=== PATIENT | female | born 1950 | race Caucasian/White ===

== ENCOUNTER → 2021-05-18 | Outpatient (CLI) | payer OTHER | LOC: M.RAD 10:29 | PROVIDERS: ATTEND Family Medicine | DX: Z12.31 Encounter for screening mammogram for malignant neoplasm of breast (principal); N64.89 Other specified disorders of breast ==

== ENCOUNTER → 2021-06-19 | Outpatient (CLI) | payer OTHER | LOC: M.LAB 15:40 | DX: H05.243 Constant exophthalmos, bilateral (principal) ==

== ENCOUNTER → 2021-06-21 | Outpatient (CLI) | payer OTHER ==
[2021-06-21 11:23] LABS: CREATININE 1.3 mg/dL (0.6-1.3)
== END ==
LOC: M.MRI 10:08
DX: I67.82 Cerebral ischemia (principal); H05.243 Constant exophthalmos, bilateral; G31.1 Senile degeneration of brain, not elsewhere classified

== ENCOUNTER 2021-08-23 09:42 | Emergency (ER) | payer OTHER ==
[~2021-08-23] VITALS: Ht 162.6 cm; Wt 68.0 kg
[2021-08-23] MEDS ORDERED: FUROSEMIDE 20 M20 MG PO (10:02)
[2021-08-23] MEDS ORDERED: KLOR-CON 10 ER10 MEQ PO (10:03)
[2021-08-23] MEDS ORDERED: LIPITOR 20 MG T20 M1 PO (10:03)
[2021-08-23] MEDS ORDERED: ARTHRITIS PAIN100 GM TOP (10:03)
[2021-08-23] MEDS ORDERED: VALSARTAN-HCTZ1 EACH PO (10:03)
[2021-08-23] MEDS ORDERED: PLAVIX 75 MG TA75 MG PO (10:03)
[2021-08-23] MEDS ORDERED: ZANAFLEX4 M2 PO (10:03)
[2021-08-23] MEDS ORDERED: VITAMIN A2400 MCG PO (10:04)
[2021-08-23] MEDS ORDERED: VITAMIN D310 MC2 PO (10:04)
[2021-08-23] MEDS ORDERED: ALLERGY RELIEF25 MG PO (10:04)
[2021-08-23] MEDS ORDERED: ZPAK PO (11:43)
[2021-08-23] MEDS ORDERED: PREDNISONE 20 M20 MG PO (11:43)
[2021-08-23] MEDS ORDERED: PROAIR HFA8.5 GM INH (11:43)
[2021-08-23 12:22] VITALS: BP 126/82
== END 2021-08-23 12:23 | disposition home or self-care (01) ==
LOC: M.ERS 09:42
DX: R05.9 Cough, unspecified (principal); Z20.822 Contact with and (suspected) exposure to COVID-19; J45.909 Unspecified asthma, uncomplicated; I10 Essential (primary) hypertension; Z79.899 Other long term (current) drug therapy; Z88.0 Allergy status to penicillin